=== PATIENT | female | born 1965 ===

== ENCOUNTER 2018-11-16 08:28 | Outpatient (CLI) | payer OTHER | END 2018-11-16 08:56 | disposition home or self-care (01) | LOC: LAB 08:28 | DX: D69.3 Immune thrombocytopenic purpura (principal) ==

== ENCOUNTER → 2020-05-29 08:02 | Outpatient (CLI) | payer OTHER | END | disposition home or self-care (01) | LOC: LAB 08:02 | DX: D69.3 Immune thrombocytopenic purpura (principal); D68.0 Von Willebrand disease; D72.821 Monocytosis (symptomatic) ==